=== PATIENT | female | born 2000 | race Caucasian/White ===

== ENCOUNTER 2023-09-20 03:41 | Inpatient (IN) | payer BC, OTHER ==
[2023-09-20] MEDS ORDERED: hydrALAZINE 20 MG/ML VIAL SLOW IVP PRN ×3 (04:31→10:24)
[2023-09-20] MEDS ORDERED: Lactated Ringer's 1,000 ML IV SCH ×2 (04:45→07:00)
[2023-09-20 05:09] LABS: #Eosinphils 0.1 10x3/uL (0.0-0.5); #Monocytes 0.6 10x3/uL (0.0-1.1); #Neutrophils 6.3 10x3/uL (1.5-8.4); %Basophils 0.4 % (0.0-2.0); %Eosinophils 1.3 % (0.0-6.0); %Lymphocytes 21.7 % (18.0-47.0); %Monocytes 6.8 % (0.0-10.0); %Neutrophils 68.5 % (40.0-75.0); Hematocrit 35.8 % (34.9-44.5); Hemoglobin 11.9 g/dL (12.0-15.5); Mean Corpuscular HGB CONC 33.2 g/dL (32.0-36.0); Mean Corpuscular Volume 93.2 fl (81.6-98.3); Platelet Count 181 10x3/uL (150-450); RBC Distribution Width 13.9 % (11.5-14.5); Red Blood Cell (RBC) Count 3.84 10x6/uL (3.90-5.03); White Blood Cell (WBC) Count 9.2 10x3/uL (3.5-10.5)
[2023-09-20 05:21] LABS: ALT (SGPT) 18 U/L (8-55); AST (SGOT) 24 U/L (5-34); Albumin 3.5 g/dL (3.5-5.0); Alkaline Phosphatase 201 U/L (40-110); Anion Gap 15 mmol/L (10-20); BUN (Urea Nitrogen) 10 mg/dL (7.0-18.7); Bilirubin, Total 0.4 mg/dL (0.2-1.2); Calc. Creatinine Clearance 0 mL/min (70-130); Calcium 8.9 mg/dL (7.8-10.44); Carbon Dioxide 20 mmol/L (22-29); Chloride 104 mmol/L (98-107); Estimated GFR 127; Glucose 98 mg/dL (70-105); Potassium 3.9 mmol/L (3.5-5.1); Protein, Total 6.5 g/dL (6.0-8.3); Sodium 135 mmol/L (136-145)
[2023-09-20] MEDS ORDERED: fentaNYL 50 mcg/mL 1 mL Vial ONE (05:25)
[2023-09-20] MEDS ORDERED: fentaNYL 50 mcg/mL 1 mL Vial SLOW IVP SCH (05:30)
[2023-09-20] MEDS ORDERED: fentaNYL/Ropivacaine Epidural 100 ML ONE (06:22)
[2023-09-20] MEDS ORDERED: fentaNYL 50 mcg/mL 1 mL Vial SLOW IVP PRN (06:51)
[2023-09-20] MEDS ORDERED: Methylergonovine 0.2 MG/ML VIAL IM PRN (06:51)
[2023-09-20] MEDS ORDERED: Diphenoxylate HCl/Atropine Tablet PO PRN (06:51)
[2023-09-20] MEDS ORDERED: HYDROcodone/Acetaminophen 5/325 mg Tablet PO PRN (06:51)
[2023-09-20] MEDS ORDERED: Ondansetron PF 4 MG/2 ML Vial IVP PRN ×2 (06:51→10:24)
[2023-09-20] MEDS ORDERED: Carboprost 250 MCG/ML AMP IM PRN (06:51)
[2023-09-20] MEDS ORDERED: Tranexamic Acid 1,000 MG/10 ML VIAL IVP PRN (06:51)
[2023-09-20] MEDS ORDERED: Acetaminophen 500 MG TAB PO PRN (06:51)
[2023-09-20] MEDS ORDERED: Ibuprofen 800 MG TAB PO PRN (06:51)
[2023-09-20] MEDS ORDERED: Misoprostol 200 MCG TAB PR PRN (06:51)
[2023-09-20] MEDS ORDERED: Lidocaine 1% (PF) 30 ML VIAL SC PRN (06:51)
[2023-09-20] MEDS ORDERED: Promethazine HCl 25 MG/ML VIAL IM PRN (06:51)
[2023-09-20] MEDS ORDERED: Oxytocin 30 units/NS 500 ML 500 ML IV SCH ×3 (07:00)
[2023-09-20 07:41] LABS: Syphilis Antibody Nonreactive (Nonreactive); Syphilis Antibody Index 0.04 S/CO (<1.00 Non-Reactive)
[2023-09-20 07:42] LABS: HBSAg Index 0.16 S/CO (0-0.99); Hep B Surf Ag - L&D Non-Reactive S/CO (NonReactive)
[2023-09-20] MEDS ORDERED: Milk Of Magnesia 30 ML UDCUP PO PRN (10:24)
[2023-09-20] MEDS ORDERED: Bisacodyl 10 MG SUPP PR PRN (10:24)
[2023-09-20] MEDS ORDERED: diphenhydrAMINE 25 MG CAP PO PRN (10:24)
[2023-09-20] MEDS ORDERED: Lanolin Ointment 7 GM TUBE TOP PRN (10:24)
[2023-09-20] MEDS ORDERED: Benzocaine-Menthol 82.5 ML CAN TOP PRN (10:24)
[2023-09-20] MEDS ORDERED: Preparation H Ointment 28 GM TUBE PR PRN (10:24)
[2023-09-20] MEDS: HYDROcodone/Acetaminophen 5/325 mg Tablet PO PRN ×2 (10:52→18:27)
[2023-09-20] MEDS ORDERED: Boostrix 0.5 ML (Tdap) VIAL (>/=7 yrs of age) IM ONE (12:00)
[2023-09-20] MEDS ORDERED: Bupivacaine 0.25% HCL 30 ML VIAL ONE (14:00)
[2023-09-20] MEDS: Ferrous Sulfate 325 MG TAB PO SCH (17:43)
[2023-09-20] MEDS: Ibuprofen 800 MG TAB PO SCH ×2 (17:43→21:27)
[2023-09-20] MEDS: Docusate 100 MG CAP PO SCH (21:27)
[2023-09-21] MEDS: Ibuprofen 800 MG TAB PO SCH ×3 (05:48→21:29)
[2023-09-21] MEDS: Docusate 100 MG CAP PO SCH ×2 (08:46→21:28)
[2023-09-21] MEDS: HYDROcodone/Acetaminophen 5/325 mg Tablet PO PRN (08:46)
[2023-09-21] MEDS: Prenatal Vitamin 1 TAB PO SCH (08:46)
[2023-09-21] MEDS: Ferrous Sulfate 325 MG TAB PO SCH ×2 (08:47→17:28)
[2023-09-21 20:42] VITALS: TEMP 98.2
[2023-09-22] MEDS: Ibuprofen 800 MG TAB PO SCH (05:39)
[2023-09-22] MEDS: Docusate 100 MG CAP PO SCH (07:49)
[2023-09-22] MEDS: Prenatal Vitamin 1 TAB PO SCH (07:49)
[2023-09-22] MEDS: Ferrous Sulfate 325 MG TAB PO SCH (07:55)
[2023-09-22 07:58] VITALS: BP 139/77
[2023-09-22 08:21] VITALS: BMI 30.9
== END 2023-09-22 10:30 | disposition home or self-care (01) | DRG 807 ==
LOC: CSHLD/OP 03:41 → CSHLD 06:16 → CSHPP 10:20
PROVIDERS: ADMIT Family Medicine; ATTEND Family Medicine
PROC: 10E0XZZ Delivery of Products of Conception, External Approach (ICD-10-PCS; principal; 2023-09-20)
PROC: 0UQMXZZ Repair Vulva, External Approach (ICD-10-PCS; 2023-09-20)
PROC: 0HQ9XZZ Repair Perineum Skin, External Approach (ICD-10-PCS; 2023-09-20)
DX: O67.9 Intrapartum hemorrhage, unspecified (principal); Z37.0 Single live birth; O69.81X0 Labor and delivery complicated by cord around neck, without compression, not applicable or unspecified; O76 Abnormality in fetal heart rate and rhythm complicating labor and delivery; Z3A.39 39 weeks gestation of pregnancy; O70.0 First degree perineal laceration during delivery
CPT/HCPCS: 36415; 51702; 80053; 85025; 86780; 86850; 86900; 86901; 87340; 99285; J2590; J3010; S0020

== ENCOUNTER 2025-07-21 22:39 | Inpatient (IN) | payer BC ==
[2025-07-21 22:51] VITALS: BMI 32.9
[2025-07-21] MEDS ORDERED: hydrALAZINE 20 MG/ML VIAL SLOW IVP PRN ×2 (22:56→23:31)
[2025-07-21] MEDS ORDERED: Diphenoxylate HCl/Atropine Tablet PO PRN ×2 (22:56)
[2025-07-21] MEDS ORDERED: Tranexamic Acid 1,000 MG/10 ML VIAL IVP PRN (22:56)
[2025-07-21] MEDS ORDERED: Methylergonovine 0.2 MG/ML VIAL IM PRN ×2 (22:56→23:31)
[2025-07-21] MEDS ORDERED: Lidocaine 1% (PF) 30 ML VIAL SC PRN (22:56)
[2025-07-21] MEDS ORDERED: Carboprost 250 MCG/ML AMP IM PRN (22:56)
[2025-07-21] MEDS ORDERED: Ondansetron PF 4 MG/2 ML Vial IVP PRN ×2 (22:56→23:31)
[2025-07-21] MEDS ORDERED: Oxytocin 30 units/NS 500 ML 500 ML IV SCH ×3 (23:00→23:45)
[2025-07-21] MEDS ORDERED: diphenhydrAMINE 25 MG CAP PO PRN (23:31)
[2025-07-21] MEDS ORDERED: Methylergonovine 0.2 MG TAB PO PRN (23:31)
[2025-07-21] MEDS ORDERED: Bisacodyl 10 MG SUPP PR PRN (23:31)
[2025-07-21] MEDS ORDERED: Lanolin Ointment 7 GM TUBE TOP PRN (23:31)
[2025-07-21] MEDS ORDERED: Milk Of Magnesia 30 ML UDCUP PO PRN (23:31)
[2025-07-21] MEDS ORDERED: Preparation H Ointment 28 GM TUBE PR PRN (23:31)
[2025-07-21 23:33] LABS: Hematocrit 38.7 % (34.9-44.5); Hemoglobin 13.3 g/dL (12.0-15.5); Mean Corpuscular Hemoglobin 32.7 pg (27.0-33.0); Mean Corpuscular Volume 95.1 fL (81.6-98.3); Platelet Count 166 10x3/uL (150-450); Red Blood Cell (RBC) Count 4.07 10x6/uL (3.90-5.03); White Blood Cell (WBC) Count 11.47 10x3/uL (3.5-10.5)
[2025-07-21] MEDS: Ibuprofen 800 MG TAB PO PRN (23:36)
[2025-07-22 00:06] LABS: Hep B Surf Ag - L&D Non-Reactive S/CO (NonReactive)
[2025-07-22 00:07] LABS: Syphilis Antibody Index 0.05 S/CO (<1.00 Non-Reactive)
[2025-07-22] MEDS: Acetaminophen 325 MG TAB PO PRN (03:16)
[2025-07-22] MEDS: Clindamycin/D5W 900 MG in Premix 1 BAG IVPB SCH ×2 (04:40→13:29)
[2025-07-22 05:09] LABS: #Basophils Less than 0.03 10x3/uL (0.0-0.2); #Eosinophils Less than 0.03 10x3/uL (0.0-0.5); #Monocytes 0.31 10x3/uL (0.0-1.1); #Neutrophils 9.02 10x3/uL (1.5-8.4); %Basophils 0.2 % (0.0-2.0); %Eosinophils 0.2 % (0.0-6.0); %Lymphocytes 2.6 % (18.0-47.0); %Monocytes 3.2 % (0.0-10.0); %Neutrophils 93.2 % (40.0-75.0); Hematocrit 36.1 % (34.9-44.5); Hemoglobin 12.4 g/dL (12.0-15.5); Mean Corpuscular Hemoglobin 32.8 pg (27.0-33.0); Mean Corpuscular Volume 95.5 fL (81.6-98.3); Platelet Count 130 10x3/uL (150-450); Red Blood Cell (RBC) Count 3.78 10x6/uL (3.90-5.03); White Blood Cell (WBC) Count 9.68 10x3/uL (3.5-10.5)
[2025-07-22] MEDS: Gentamicin 312 MG, Admixture Fee 1 EACH in Sodium Chloride 0.9% 100 ML IVPB SCH (06:17)
[2025-07-22] MEDS: Ferrous Sulfate 325 MG TAB PO SCH (07:44)
[2025-07-22] MEDS: Ibuprofen 800 MG TAB PO SCH (07:46)
[2025-07-22] MEDS: Benzocaine-Menthol 82.5 ML CAN TOP PRN (07:47)
[2025-07-23 04:05] LABS: #Basophils 0.03 10x3/uL (0.0-0.2); #Eosinophils 0.44 10x3/uL (0.0-0.5); #Monocytes 0.35 10x3/uL (0.0-1.1); #Neutrophils 10.21 10x3/uL (1.5-8.4); %Basophils 0.2 % (0.0-2.0); %Eosinophils 3.7 % (0.0-6.0); %Lymphocytes 7.6 % (18.0-47.0); %Monocytes 2.9 % (0.0-10.0); %Neutrophils 84.9 % (40.0-75.0); Hematocrit 33.7 % (34.9-44.5); Hemoglobin 11.7 g/dL (12.0-15.5); Mean Corpuscular Hemoglobin 33.3 pg (27.0-33.0); Mean Corpuscular Volume 96.0 fL (81.6-98.3); Platelet Count 121 10x3/uL (150-450); Red Blood Cell (RBC) Count 3.51 10x6/uL (3.90-5.03); White Blood Cell (WBC) Count 12.03 10x3/uL (3.5-10.5)
[2025-07-23 04:22] LABS: ALT (SGPT) 19 U/L (Less than 34); AST (SGOT) 39 U/L (11-34); Albumin 2.2 g/dL (3.1-4.5); Alkaline Phosphatase 120 U/L (40-110); Anion Gap 12 mmol/L (10-20); BUN (Urea Nitrogen) 9 mg/dL (7.0-18.7); Bilirubin, Total 0.4 mg/dL (0.3-1.2); Calc. Creatinine Clearance 173 mL/min (70-130); Calcium 8.0 mg/dL (7.8-10.44); Carbon Dioxide 19 mmol/L (22-29); Chloride 112 mmol/L (98-107); Globulin 3.1 g/dL (2.4-3.5); Glucose 170 mg/dL (70-105); Potassium 4.1 mmol/L (3.5-5.1); Sodium 139 mmol/L (136-145)
[2025-07-23 07:59] VITALS: BP 110/57; TEMP 97.9
== END 2025-07-23 13:25 | disposition home or self-care (01) | DRG 806 ==
LOC: CSHLD/OP 22:39 → CSHLD 23:18 → CSHPP 07-22 01:45
PROVIDERS: ADMIT Family Medicine; ATTEND Family Medicine
PROC: 10E0XZZ Delivery of Products of Conception, External Approach (ICD-10-PCS; principal; 2025-07-21)
PROC: 0KQM0ZZ Repair Perineum Muscle, Open Approach (ICD-10-PCS; 2025-07-21)
PROC: 3E03329 Introduction of Other Anti-infective into Peripheral Vein, Percutaneous Approach (ICD-10-PCS; 2025-07-22)
DX: O70.1 Second degree perineal laceration during delivery (principal); O86.4 Pyrexia of unknown origin following delivery; Z37.0 Single live birth; O99.893 Other specified diseases and conditions complicating puerperium; N80.9 Endometriosis, unspecified; Z3A.38 38 weeks gestation of pregnancy; Z79.82 Long term (current) use of aspirin
CPT/HCPCS: 36415; 80053; 83605; 84145; 85025; 85027; 86780; 86850; 86900; 86901; 87040; 87340; 93005; 93010; 99285; J0290; J1580; J2590; J3010; J3490; J7120

== ENCOUNTER 2025-10-08 13:01 | Emergency (ER) | payer BC ==
[2025-10-08 14:10] LABS: Anion Gap 14 mmol/L (10-20); BUN (Urea Nitrogen) 20 mg/dL (7.0-18.7); Calc. Creatinine Clearance 0 mL/min (70-130); Carbon Dioxide 21 mmol/L (22-29); Chloride 104 mmol/L (98-107); Potassium 3.7 mmol/L (3.5-5.1); Sodium 135 mmol/L (136-145)
[2025-10-08 14:11] LABS: ALT (SGPT) 48 U/L (Less than 34); AST (SGOT) 33 U/L (11-34); Albumin 4.7 g/dL (3.1-4.5); Alkaline Phosphatase 99 U/L (40-110); Bilirubin, Total 1.2 mg/dL (0.3-1.2); Calcium 9.1 mg/dL (7.8-10.44); Globulin 3.3 g/dL (2.4-3.5); Glucose 117 mg/dL (70-105); Lipase 25 U/L (8-78)
[2025-10-08 14:13] LABS: #Basophils Less than 0.03 10x3/uL (0.0-0.2); #Eosinophils 0.06 10x3/uL (0.0-0.5); #Monocytes 0.43 10x3/uL (0.0-1.1); #Neutrophils 8.02 10x3/uL (1.5-8.4); %Basophils 0.2 % (0.0-2.0); %Eosinophils 0.7 % (0.0-6.0); %Lymphocytes 3.7 % (18.0-47.0); %Monocytes 4.8 % (0.0-10.0); %Neutrophils 90.2 % (40.0-75.0); Hematocrit 36.0 % (34.9-44.5); Hemoglobin 12.6 g/dL (12.0-15.5); Mean Corpuscular Hemoglobin 32.4 pg (27.0-33.0); Mean Corpuscular Volume 92.5 fL (81.6-98.3); Platelet Count 194 10x3/uL (150-450); Red Blood Cell (RBC) Count 3.89 10x6/uL (3.90-5.03); White Blood Cell (WBC) Count 8.90 10x3/uL (3.5-10.5)
[2025-10-08 14:21] LABS: BHCG - Serum Negative (NEGATIVE); Pregs Control Background? CLEAR/WHITE (CLR/WHITE); Pregs Control Bar Appear? YES (CONTROL BAR)
[2025-10-08 14:55] LABS: Glucose, Urine (Dipstick) Normal (Negative); Leukocyte Negative (Negative); Protein, Urine (Dipstick) Negative (Neg-Trace); Specific Gravity, Urine 1.005 (1.005-1.030)
[2025-10-08 15:42] LABS: Bacteria/HPF None Seen HPF (None Seen); CAUTI Indications for Culture Pelvic or flank pain; RBC/HPF None Seen HPF (0-3); WBC/HPF None Seen HPF (0-3)
[2025-10-08 15:43] LABS: Urine Culture Reflex No No
== END 2025-10-08 16:11 | disposition home or self-care (01) ==
LOC: CSHERS 13:01
DX: K52.9 Noninfective gastroenteritis and colitis, unspecified (principal)
CPT/HCPCS: 36415; 80053; 81001; 83690; 84703; 85025; 96361; 96374